=== PATIENT | male | born 1940 | race Caucasian/White ===

== ENCOUNTER 2023-04-02 07:13 | Emergency (ER) | payer MEDICARE, SELFPAY ==
--- NOTE | ~2023-04-02 | XR_ITS ---
XR chest 2V 04/02/2023 19:36 Indication: Right-sided chest pain after recent fall Procedure: 2 view chest Comparison: No prior studies for comparison. Findings: There is left basilar atelectasis. There is a densely calcified right hilar lymph node, lik uma chronic granulomatous disease. No focal pneumonia, edema, pleural effusion or pneumothorax. Heart size normal. No acute osseous abnormality. Impression: 1: Left basilar atelectasis. Reviewed, dictated and finalized at location L. Impression: 1: Left basilar atelectasis.
== END 2023-04-02 12:30 | disposition home or self-care (01) ==
LOC: ANHED 18:46
PROVIDERS: Emergency Provider Emergency Medicine; PCP Family Medicine
DX: K59.00 Constipation, unspecified (principal); R07.81 Pleurodynia; W19.XXXA Unspecified fall, initial encounter
CPT/HCPCS: 71046; 99283; A9270